=== PATIENT | male | born 1955 | race Hispanic/Latino ===

== ENCOUNTER 2022-05-25 19:41 | Emergency (ER) | payer MEDICARE ==
[~2022-05-25] VITALS: Ht 175.3 cm; Wt 108.0 kg
[2022-05-25] MEDS ORDERED: ONDANSETRON HCL INJ 2MG/ML 2ML 2 MG/ML VIAL IV STA (20:40)
[2022-05-25] MEDS ORDERED: Morphine 4mg INJECTION 4 MG/ML INJ IV ONE (20:45)
[2022-05-25] MEDS ORDERED: Morphine 4mg INJECTION 4 MG/ML INJ ONE (21:12)
[2022-05-25] MEDS ORDERED: ONDANSETRON HCL INJ 2MG/ML 2ML 2 MG/ML VIAL ONE (21:12)
[2022-05-25] MEDS ORDERED: ASPIRIN 81 MG CHEW TAB PO STA (21:45)
[2022-05-25] MEDS ORDERED: ASPIRIN 81 MG CHEW TAB ONE (22:41)
[2022-05-26 00:08] VITALS: BP 178/88
== END 2022-05-26 00:08 | disposition short-term general hospital (02) ==
LOC: FSED 19:46
DX: R51.9 Headache, unspecified (principal); R20.0 Anesthesia of skin; R20.2 Paresthesia of skin; I10 Essential (primary) hypertension; E11.8 Type 2 diabetes mellitus with unspecified complications
CPT/HCPCS: 70450; 80053; 80307; 81003; 82553; 82948; 84484; 85025; 85610; 93005; 99284; J2270; J2405; U0002

== ENCOUNTER → 2023-01-02 | Outpatient (REF) | payer MEDICARE ==
[~2023-01-02] MED LIST: ALBUTEROL SULF 0.083% NEB SOLN 3 ML NEB NEB SCH; CEPHALEXIN500 MG PO
== END ==
LOC: RESP 09:34 → EDSTATUS 10:00
PROVIDERS: ATTEND Family Medicine
DX: R06.02 Shortness of breath (principal); J34.3 Hypertrophy of nasal turbinates; G47.33 Obstructive sleep apnea (adult) (pediatric); J30.9 Allergic rhinitis, unspecified; E66.9 Obesity, unspecified
CPT/HCPCS: 71046; 94060; 94640; 94727; 94729

== ENCOUNTER 2024-05-26 12:21 | Emergency (ER) | payer MEDICARE ==
[~2024-05-26] VITALS: Ht 175.3 cm; Wt 108.0 kg
[~2024-05-26 12:21] MED LIST changes: -ALBUTEROL SULF 0.083% NEB SOLN 3 ML NEB NEB SCH
[2024-05-26 12:37] VITALS: TEMP 98.7
[2024-05-26] MEDS: LABETALOL HCL 5 MG/ML 20ML VIAL IV STA (13:09)
[2024-05-26] MEDS: HYDRALAZINE HCL 20 MG/ML VIAL IV STA (13:09)
[2024-05-26 13:26] LABS: BASOPHILS % 0.6 % (0.0-1.0); EOSINOPHILS # (AUTO) 0.1 (0.0-0.4); EOSINOPHILS % 1.3 % (0.0-6.0); HEMATOCRIT 43.8 % (38.2-49.6); HEMOGLOBIN 14.9 g/dL (14.0-18.0); LYMPHOCYTES # (AUTO) 1.2 (1.0-3.2); LYMPHOCYTES % 22.9 % (18.0-39.1); MEAN CORPUSCULAR HEMOGLOBIN 31.5 pg (28-32); MEAN CORPUSCULAR VOLUME 92.6 fL (81-99); MONOCYTES # (AUTO) 0.4 (0.2-0.8); MONOCYTES % 7.9 % (4.4-11.3); NEUTROPHILS # (AUTO) 3.6 (2.1-6.9); NEUTROPHILS % 67.1 % (38.7-80.0); PLATELET COUNT 219 x10e3/uL (140-360); RED BLOOD COUNT 4.73 x10e6/uL (4.3-5.7); RED CELL DISTRIBUTION WIDTH 12.7 % (11.7-14.4); WHITE BLOOD COUNT 5.29 x10e3/uL (4.8-10.8)
[2024-05-26 13:32] VITALS: PULSE 68; RESP 16
[2024-05-26] MEDS ORDERED: COREG6.25 MG PO (13:53)
[2024-05-26] MEDS ORDERED: AMLODIPINE BESYL5 MG PO (13:53)
[2024-05-26 13:55] LABS: ALBUMIN 4.1 g/dL (3.5-5.0); ALBUMIN/GLOBULIN RATIO 1.3 (0.8-2.0); ANION GAP 14.8 mmol/L (8-16); BILIRUBIN,TOTAL 0.6 mg/dL (0.2-1.2); CREATININE, SERUM 1.07 mg/dL (0.72-1.25); POTASSIUM 3.8 mmol/L (3.5-5.1); TOTAL PROTEIN 7.2 g/dL (6.5-8.1)
[2024-05-26 14:04] VITALS: BP 161/76; PULSE 88; RESP 18; TEMP 97.3; O2SAT 100
== END 2024-05-26 14:06 | disposition home or self-care (01) ==
LOC: ER 12:25
DX: I10 Essential (primary) hypertension (principal); E11.65 Type 2 diabetes mellitus with hyperglycemia; E78.5 Hyperlipidemia, unspecified; Z86.73 Personal history of transient ischemic attack (TIA), and cerebral infarction without residual deficits
CPT/HCPCS: 36415; 80053; 85025; 99284; J0360; J3490

== ENCOUNTER → 2024-09-24 | Outpatient (REF) | payer MEDICARE ==
[~2024-09-24] MED LIST changes: +AMLODIPINE BESYL5 MG PO; +COREG6.25 MG PO
== END ==
LOC: RAD 11:23
PROVIDERS: ATTEND Specialist/Technologist, Other Surgical Technologist
DX: M25.532 Pain in left wrist (principal)

== ENCOUNTER → 2024-10-06 | Outpatient (REF) | payer MEDICARE | LOC: DX 10:28 | PROVIDERS: ATTEND Specialist/Technologist, Other Surgical Technologist | DX: R13.13 Dysphagia, pharyngeal phase (principal) | CPT/HCPCS: 74230 ==